=== PATIENT | female | born 1970 | race Caucasian/White ===

== ENCOUNTER → 2017-05-30 | Outpatient (CLI) | payer MEDICAID ==
[~2017-05-30] MED LIST: GADOBUTROL 10 ML VIAL IVP ONE
== END ==
LOC: FIMAGING 07:41
PROVIDERS: ATTEND Psychiatry & Neurology Neurology
DX: G35 Multiple sclerosis (principal); R20.2 Paresthesia of skin
CPT/HCPCS: A9585

== ENCOUNTER → 2017-06-01 | Outpatient (CLI) | payer MEDICAID | LOC: FIMAGING 14:46 | PROVIDERS: ATTEND Emergency Medicine | DX: N83.01 Follicular cyst of right ovary (principal); N83.02 Follicular cyst of left ovary ==

== ENCOUNTER 2017-10-20 05:48 | Day surgery (SDC) | payer MEDICAID ==
--- NOTE | 2017-10-13 20:29 | GHP ---
[f rep st] PREOP HISTORY AND PHYSICAL DATE OF ADMISSION: 10/20/2017 DATE OF SURGERY: 10/20/2017. PREOPERATIVE DIAGNOSES: Menometrorrhagia, dysmenorrhea, and dysfunctional uterine bleeding. SURGERY TO BE PERFORMED: Hysteroscopy, dilation and curettage, polypectomy, and endometrial ablation . SURGEON: Dr. Lita Liriano. HISTORY OF PRESENT ILLNESS: The patient is a 47-year-old, 3, para 3-0-0-3, who presented com plaining of 1 year of abnormally heavy menses, very heavy with severe dysmenorrhea for several days. She has periods every 3 weeks, soaking a pad and a tampon every hour and there has only been 6 days in the last 3 months where she has not bled. She is bleeding throughout the month, episodes are heav ier than others, but has not had any episodes of stopping. She is complaining of significant dizzine ss and lightheadedness and feeling very run down from all of this bleeding. She says her periods hav e dramatically changed over the last year. She underwent a workup for this heavy bleeding, which included labs that were normal. Her TSH was 1. 39. Her hormones were normal premenopausal levels. Her H and H were 14.2 and 41.0. She had an ultr asound, which revealed a thickened endometrium 1.77 cm in the upper endometrium, which is heterogeneo us in texture and had some hypervascularity, difficult to identify a distinct polyp or fibroid. She had an endometrial biopsy that was performed that showed no hyperplasia or malignancy, early secretor y pattern endometrium and patient was given treatment options of medical management with oral contrac eptive pills versus surgical management with hysteroscopy, D and C, and endometrial ablation. The yojana cho wished to have surgical management, but could not have her surgery performed for a couple of mo nths, so she tried oral contraceptive pills to help. She was unable to tolerate them. They gave her severe nausea, vomiting, and cramping, so she discontinued them and continued to have her very heavy bleeding. She is now ready to have definitive management with the surgery. We also discussed the a lternatives of having a total laparoscopic hysterectomy. The patient declined this at this time, wis hes to have the endometrial ablation instead. PAST GYNECOLOGICAL HISTORY: She had a normal menstrual triad prior to this year with menarche at age 12. Periods every 26-28 days, lasting 5 days, with moderate flow and [id number] cramps. Thi ngs got dramatically worse in the last year. She has had a distant history of an abnormal Pap. Repe at Pap was negative. No other abnormal since. She denies any history of STDs. She has used oral co ntraceptive pills in the past. Currently, her has a vasectomy and that is their contraceptio n. Her last Pap smear was in 2015 and it was normal. PAST OBSTETRICAL HISTORY: She had 3 normal spontaneous vaginal deliveries. The 1st baby in 1997 was born at 34 weeks. Remainder of her pregnancies were at term and uncomplicated. PAST MEDICAL HISTORY: Significant for multiple sclerosis. She is followed by a heat welder plastics for t his and has done well, is in remission. No residual symptoms at this time. She is in a trial and sh ambrosio is on 4 pills a day for her MS. PAST SURGICAL HISTORY: She has had multiple back, foot, and knee surgeries. She has also had eye smith rgeries and wrist surgeries. No abdominal surgeries at all. ALLERGIES: Hydrocodone, it gives her hives and a rash. MEDICATIONS: Her only current medication is 4 pills a day. SOCIAL HISTORY: She is . She lives with her and 2 of her 3 daughters. Her oldest willy herrera is in college. She denies tobacco. Alcohol 1-2 times a month. No marijuana. No other subst ance use. Moderate caffeine use. She has moderate exercise 5 times a week, hikes, bikes, swimming. She works as a corporate real estate manager. She is blind in her right eye from . FAMILY HISTORY: Father has heart disease, had bypass surgery, and has hypercholesterolemia. Mom has a history of skin cancer. REVIEW OF SYSTEMS: Significant for vaginal bleeding, abdominal pain, bloating and cramping. No naus ea or vomiting. No GI symptoms. A negative 10-point review of systems other than pertinent to the H PI. PHYSICAL EXAMINATION: VITAL SIGNS: Blood pressure is 92/52, weight is 159 pounds. GENERAL: She is a well-developed, well-nourished white female, in no acute distress. LUNGS: Clear to auscultation bilaterally. HEART: Regular rate and rhythm. No murmur. ABDOMEN: Soft, nontender, nondistended. Normal bowel sounds. PELVIC: Normal external genitalia. Normal parous cervix. Uterus is antevert ed, anteflexed, mobile, nontender. No abnormal masses. ASSESSMENT/PLAN: A 47-year-old, 3, para 3-0-0-3, with menometrorrhagia, thickened endometriu m on ultrasound, negative biopsy, for hysteroscopy, dilation and curettage, and endometrial ablation. The patient was consented for the procedure today. She understood the risks and benefits. The ris ks including bleeding, infection, damage to the uterus, including possible risk of perforation, damag e to other organs if perforation were to occur, risk of failure of the procedure needing additional p rocedures at a later time. She understood these risks and benefits and agreed to proceed. /[id number]/MODL
[2017-10-20] MEDS ORDERED: ceFAZolin 2 GM/SWFI 2 GM/20 ML SYR IVP ONE (06:05)
[2017-10-20] MEDS ORDERED: LIDOCAINE 1% 2 ML INJ ID PRN (06:06)
[2017-10-20] MEDS ORDERED: LR 1,000 ML IV ONE (06:06)
[2017-10-20] MEDS ORDERED: MIDAZOLAM 2 MG/2 ML VIAL IVP ONE (06:47)
--- NOTE | 2017-10-20 06:47 | PDANEPAE ---
ANE History of Present Illness menorrhagia ANE Past Medical History - Cardiovascular History Hx Hypertension: No Hx Arrhythmias: No Hx Chest Pain: No Hx Coronary Artery / Peripheral Vascular Disease: No Hx CHF / Valvular Disease: No Hx Palpitations: No - Pulmonary History Hx COPD: No Hx Asthma/Reactive Airway Disease: No Hx Recent Upper Respiratory Infection: No Hx Oxygen in Use at Home: No Hx Sleep Apnea: No Sleep Apnea Screening Result - Last Documented: Negative - Neurologic History Hx Cerebrovascular Accident: No Hx Seizures: No Hx Dementia: No - Endocrine History Hx Diabetes: No Hypothyroid: No Hyperthyroid: No Obesity: no - Renal History Hx Renal Disorders: No - Liver History Hx Hepatic Disorders: No - Neurological & Psychiatric Hx Hx Neurological and Psychiatric Disorders: Yes Neurological / Psychiatric History Comment: MS followed by associated neurologist - Cancer History Hx Cancer: No - Congenital Disorder History Hx Congenital Disorders: Yes Congenital History Comment: R eye blindness - GI History GERD: no Hx Gastrointestinal Disorders: No - Other Health History Other Health History: R eye - Chronic Pain History Chronic Pain: No - Surgical History Prior Surgeries: none ANE Review of Systems Review of Systems: - Exercise capacity METS (RN): 5 METS ANE Patient History - Allergies Allergies/Adverse Reactions: hydrocodone [Hydrocodone] Allergy (Intermediate, Verified 10/20/17 06:12) Hives - Home Medications Home Medications: Tecfidera 09/27/17 [Last Taken 10/20/17 05:30] - NPO status NPO Since - Liquids (Date): 10/19/17 NPO Since - Liquids (Time): 19:30 NPO Since - Solids (Date): 10/19/17 NPO Since - Solids (Time): 18:30 - Anes Hx Anes Hx: post operative nausea - Smoking Hx Smoking Status: Never smoked - Alcohol Use Alcohol Use: Occasionally - Family Anes Hx Family Anes Hx: none Family Hx Anesthesia Complications: none ANE Labs/Vital Signs - Vital Signs Height: 167.64 cm Weight: 70.307 kg ANE Physical Exam - Airway Neck exam: FROM Mallampati Score: Class 1 Mouth exam: normal dental/mouth exam - Pulmonary Pulmonary: no respiratory distress, no rales or rhonchi, clear to auscultation - Cardiovascular Cardiovascular: regular rate and rhythym, no murmur, rub, or gallop - ASA Status ASA Status: II ANE Anesthesia Plan Anesthesia Plan: GA w LMA
[2017-10-20] MEDS ORDERED: NALOXONE HCL 0.4 MG/ML INJ IVP PRN (07:08)
[2017-10-20] MEDS ORDERED: PROMETHAZINE HCL 25 MG/ML INJ IVP PRN (07:08)
[2017-10-20] MEDS ORDERED: SILVER NITRATE APPLICATOR 1 APPL TP ONE (07:08)
[2017-10-20] MEDS ORDERED: OXYCODONE/APAP 5/325 TAB PO PRN ×2 (07:08→08:23)
[2017-10-20] MEDS ORDERED: fentaNYL 100 MCG/2 ML INJ IVP PRN (07:08)
[2017-10-20] MEDS ORDERED: ONDANSETRON 4 MG/2 ML VIAL IVP PRN (07:08)
[2017-10-20] MEDS ORDERED: ACETAMINOPHEN 500 MG TAB PO PRN (07:08)
[2017-10-20] MEDS ORDERED: LR 500 ML IV PRN (07:08)
[2017-10-20] MEDS ORDERED: fentaNYL 100 MCG/2 ML INJ ONE ×2 (07:25→08:20)
[2017-10-20] MEDS ORDERED: KETOROLAC 30 MG/1 ML SDV ONE (07:25)
[2017-10-20] MEDS ORDERED: ONDANSETRON 4 MG/2 ML VIAL ONE ×2 (07:25→08:54)
[2017-10-20] MEDS ORDERED: PROPOFOL 200 MG/20 ML VIAL ONE (07:25)
[2017-10-20] MEDS ORDERED: DEXAMETHASONE 4 MG/ML VIAL ONE (07:26)
--- NOTE | 2017-10-20 07:27 | PDHPUP ---
History & Physical Update H&P update statement: This history and physical update is based on an assessment of the patient which was completed after admission or registration (within 24 hours), but prior to the surgery/procedure.
[2017-10-20] MEDS ORDERED: LIDOCAINE 2% 5 ML SDV ONE (07:29)
[2017-10-20] MEDS ORDERED: IBUPROFEN 600 MG TAB PO PRN (08:22)
[2017-10-20] MEDS ORDERED: IBUPROFEN 200 MG TAB PO PRN (08:28)
--- NOTE | 2017-10-20 08:29 | POSTOPPROG ---
Post Op Note Date of Operation: 10/20/17 Surgeon: Lita Liriano Anesthesiologist: Dr. Jim Cespedes Anesthesia: GET(General Endotracheal) Pre-op Diagnosis: menomenorrhagia, dysmenorrhea Post-op Diagnosis: same Procedure: Hysteroscopy dilation and currettage, polypectomy endometrial ablation Inf/Abcess present in the surg proc area at time of surgery?: No Depth: Organ Space EBL: Minimal Total fluids administered: 1500 Complications: none Specimen(s): endometrial currettings
--- NOTE | 2017-10-20 08:46 | POSTANESTH ---
Post Anesthetic Evaluation Cardiovascular Status: Normal, Stable Respiratory Status: Normal, Stable Level of Consciousness/Mental Status: Can Participate in Eval Pain Control: Adequate, Prn Tx Ordered Nausea/Vomiting Control: Adequate, Prn Tx Ordered Complications Possibly Related to Anesthesia: None Noted
--- NOTE | 2017-10-20 09:25 | GOP ---
[f rep st] OPERATIVE REPORT DATE OF OPERATION: 10/20/2017 SURGEON: Lita Liriano MD ANESTHESIA: General anesthesia. ANESTHESIOLOGIST: Dr. Vernell Bojorquez PREOPERATIVE DIAGNOSIS: Menometrorrhagia, dysmenorrhea, and dysfunctional uterine bleeding. POSTOPERATIVE DIAGNOSIS: Menometrorrhagia, dysmenorrhea, and dysfunctional uterine bleeding. PROCEDURE PERFORMED: Hysteroscopy, dilation and curettage, polypectomy, and endometrial ablation. FINDINGS: INDICATIONS: The patient is a 47-year-old, 3, para 3-0-0-3, who presents complaining of 1 ye ar of abnormally heavy menses, very heavy with severe dysmenorrhea several days every month, and blee ding in between. This has compromised her life when she is unable to function during the weeks of he r periods, and she would like to have definitive therapy for this. We discussed medical management v ersus surgical management with hysteroscopy and endometrial ablation versus a hysterectomy. The pineda ent wished to have an endometrial ablation for management. She understood the risks and benefits, th e risks including bleeding, infection, damage to the uterus, tubes, ovaries, bowel, bladder, nerves, blood vessels, or ureters, risk of electrolyte abnormalities, and risk of an incomplete treatment of the bleeding requiring additional procedures at a later time. She understood these risks and benefit s and agreed to proceed. DESCRIPTION OF PROCEDURE: The patient was taken to the operating room, where she was placed under ge neral anesthesia without difficulty. She was prepped and draped in the dorsal lithotomy position, an d she had just drained her bladder. After the WHO time-out was performed, an open-sided speculum was placed in the vagina, and a single-tooth tenaculum was used to grasp the anterior lip of the cervix. The uterus sounded to 9 cm, and the cervix sounded to 4. The cervix was then progressively dilated with Mckenzie dilators to a #6.5. The TruClear hysteroscope was gently advanced from the cervix to the fundus, and visualization of the endometrial contents was performed. There were no distinct polyps, but there was redundant tissue throughout the endometrium. Both tubal ostia were seen and normal, a nd her uterine contour was normal. The polyp blade was advanced through the operative channel of the hysteroscope, window lock was performed, and dissection of the tissue was made under direct visualiz ation until the cavity was clear and open. Hysteroscope was then removed. The Zulema endometrial a blation was seated at the fundus. The balloon was inflated, the cavity assessment was passed, and ab lation took place over 120 seconds. The device was then removed and the hysteroscope was re-placed t hrough the cervix to the fundus. There was a good burn noted throughout the entire endometrium. The tenaculum was removed. There were small areas of bleeding that were cauterized with silver nitrate. The patient tolerated the procedure well. Sponge, lap, needle, and instrument counts were correct x2. Patient went to the recovery room in good condition. Estimated blood loss for the procedure was less than 25 cc. Fluid replacement was 1500 cc. Pathologic specimen will be endometrial curettings , and deficit from the hysteroscope was 140 cc. /[id number]/MODL
[2017-10-20 10:19] VITALS: BP 102/69; PULSE 75; RESP 18; TEMP 98.2; O2SAT 97
== END 2017-10-20 10:19 | disposition home or self-care (01) ==
LOC: FSGY 05:48
PROVIDERS: ATTEND Obstetrics & Gynecology
PROC: 0U5B8ZZ Destruction of Endometrium, Via Natural or Artificial Opening Endoscopic (ICD-10-PCS; principal; 2017-10-20 07:15)
DX: N92.1 Excessive and frequent menstruation with irregular cycle (principal); N94.6 Dysmenorrhea, unspecified; N93.8 Other specified abnormal uterine and vaginal bleeding
CPT/HCPCS: 58563; C1782; J0690; J1100; J1885; J2250; J2405; J2704; J3010

== ENCOUNTER → 2018-01-04 | Outpatient (CLI) | payer MEDICAID | LOC: FIMAGING 13:46 | PROVIDERS: ATTEND Family Medicine | DX: Z12.31 Encounter for screening mammogram for malignant neoplasm of breast (principal); Z80.3 Family history of malignant neoplasm of breast ==

== ENCOUNTER → 2018-07-18 | Outpatient (CLI) | payer MEDICAID | LOC: FIMAGING 17:50 | PROVIDERS: ATTEND Family Medicine | DX: M25.532 Pain in left wrist (principal) ==

== ENCOUNTER → 2018-08-15 | Outpatient (CLI) | payer MEDICAID | LOC: FIMAGING 18:47 | PROVIDERS: ATTEND Family Medicine | DX: M24.132 Other articular cartilage disorders, left wrist (principal); M19.132 Post-traumatic osteoarthritis, left wrist; M77.8 Other enthesopathies, not elsewhere classified ==